=== PATIENT | female | born 1980 | race Caucasian/White ===

== ENCOUNTER → 2019-03-13 | Day surgery (SDC) | payer OTHER ==
[~2019-03-13] MED LIST: DEPAKOTE ER500 MG PO; FENTANYL CITRATE/PF 100MCG/2 ML INJ ONE; HYOSCYAMINE 0.125 MG TAB ONE; KEPPRA750 MG PO; MIDAZOLAM HCL 2 MG/2 ML VIAL ONE; PANTOPRAZOLE 40 MG 10ML VIAL ONE; PROPOFOL IV EMULSION 10 MG/ML 50 ML VIAL ONE; SIMETHICONE 40 MG/0.6 ML BTL ONE
--- OUTSIDE RECORDS SUMMARY | 2019-03-13 09:53 | XMS REPORT ---
Author 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 Allergies, Adverse Reactions, Alerts Allergy Name Allergy Type Status Severity Reaction(s) Onset Date Inactive Date Treating Clinician Comments epinephrine DA Active U 2019-03-06 00:00:00 articaine DA Active U 2019-03-06 00:00:00 No Known Allergies DA Active U 2019-03-04 00:00:00 No Known Allergies DA Active U 2011-05-22 00:00:00 Medications This patient has no known medications. Results Test Description Test Time Test Comments Text Results Atomic Results Result Comments LEVETIRACETAM 2019-03-07 20:06:00 LEVETIRACETAM (test code=LEVTAM) 45.1 ug/mL 10.0-40.0 This test was developed and its performance characteristicsdetermined by [facility]. It has not been cleared orapproved by the Food and Drug Administration.Performed At: [address] [id number] Weaver MD Ph:[phone] - XR CHEST 1 [id number] 08:09:00 Name: OMAR WILLIAMSON [facility] : 1980 Age/S:38 /F [address] [facility] Unit#:[id number] Loc: [place] [address] Phys: Ryan Rodriguez MD Dis Date: PHONE #: [phone] Status: REG ER FAX #: [phone] Exam Date: 03/06/2019 Reason: CHEST PAIN EXAMS: CPT CODE: [id number] XR CHEST 1 V 88564 TECHNIQUE: AP chest x-ray COMPARISON: 03/04/19 FINDINGS: No airspace consolidation or pleural effusion. Normal heart size. Mediastinal silhouette is unremarkable. Visualized osseous structures are grossly intact. IMPRESSION: No radiographic evidence of acute cardiopulmonary process. at 0809 Reported and signed by: Sarah Chen D.O. CC: Ryan Rodriguez MD; Giovanny Woodward DO Technologist: BLANKA RAMIREZ RT(R),CT Trnscrpt Data: 03/06/2019 (0809) Amilcar.[email or web address] Orig Print D/T: S: 03/06/2019 (8914) PAGE 1 Signed Report BASIC METABOLIC [id number] 08:00:00* Test Item Value Reference Range Comments SODIUM (test code=NA) 141 mmol/L 136-145 POTASSIUM (test code=K) 3.6 mmol/L 3.5-5.1 CHLORIDE (test code=CL) 104 mmol/L 101-109 CARBON DIOXIDE (test code=CO2) 29.1 mmol/L 21-32 ANION GAP (test code=GAP) 12 mmol/L 10-20 GLUCOSE (test code=GLU) 87 mg/dL 74-106 BLOOD UREA NITROGEN (test code=BUN) 8 mg/dL 3-21 GLOMERULAR FILTRATION RATE (test code=GFR) > 60 mL/min >=60 Estimated GFR by using Modified MDRD formula.Chronic kidney disease is defined as either kidney damageor GFR <60 mL/min/1.73 m2 for >3 months. CREATININE (test code=CREAT) 0.69 mg/dL 0.55-1.3 BUN/CREATININE RATIO (test code=BUN/CREA) 11.6 10-20 CALCIUM (test code=CA) 8.2 mg/dL 8.4-10.2 HEPATIC FUNCTION [id number] 08:00:00* Test Item Value Reference Range Comments TOTAL PROTEIN (test code=PROT) 6.8 g/dL 6.5-8.4 ALBUMIN (test code=ALB) 3.4 g/dL 3.4-4.8 GLOBULIN (test code=GLOB) 3.4 G/DL 1-10 ALBUMIN/GLOBULIN RATIO (test code=A/G) 1.00 RATIO 0.75-1.50 BILIRUBIN TOTAL (test code=BILT) 0.20 mg/dL 0.0-1.0 BILIRUBIN DIRECT (test code=BILD) 0.10 mg/dL 0.0-0.30 SGOT/AST (test code=AST) 25 U/L 6-32 SGPT/ALT (test code=ALT) 26 U/L 12-78 Note: Change in REFERENCE RANGE due to new reagent method. ALKALINE PHOSPHATASE TOTAL (test code=ALKP) 63 U/L 38-126 [id number] 08:00:00* Test Item Value Reference Range Comments LIPASE (test code=LIP) 102 U/L 128-270 HCG SERUM [id number] 08:00:00* Test Item Value Reference Range Comments HCG SERUM QUAL (test code=HCGQL) NEGATIVE NEGATIVE This HCGQL test is NOT applicable for MALE patients.Check with nurse about probable order error.If Tumor Marker Test needed, nurse should order test "HCGTU"(Test #550.33789) [id number] 08:00:00* Test Item Value Reference Range Comments TROPONIN-I (test code=TROPI) <0.015 ng/mL 0.00-0.056 BASIC METABOLIC [id number] 07:56:00* Test Item Value Reference Range Comments SODIUM (test code=NA) 141 mmol/L 136-145 POTASSIUM (test code=K) 3.6 mmol/L 3.5-5.1 CHLORIDE (test code=CL) 104 mmol/L 101-109 CARBON DIOXIDE (test code=CO2) 29.1 mmol/L 21-32 ANION GAP (test code=GAP) 12 mmol/L 10-20 GLUCOSE (test code=GLU) 87 mg/dL 74-106 BLOOD UREA NITROGEN (test code=BUN) 8 mg/dL 3-21 GLOMERULAR FILTRATION RATE (test code=GFR) > 60 mL/min >=60 Estimated GFR by using Modified MDRD formula.Chronic kidney disease is defined as either kidney damageor GFR <60 mL/min/1.73 m2 for >3 months. CREATININE (test code=CREAT) 0.69 mg/dL 0.55-1.3 BUN/CREATININE RATIO (test code=BUN/CREA) 11.6 10-20 CALCIUM (test code=CA) 8.2 mg/dL 8.4-10.2 HEPATIC FUNCTION [id number] 07:56:00* Test Item Value Reference Range Comments TOTAL PROTEIN (test code=PROT) gram/dL 6.4-8.2 ALBUMIN (test code=ALB) g/dL 3.4-5.0 GLOBULIN (test code=GLOB) g/dL 2.7-4.2 ALBUMIN/GLOBULIN RATIO (test code=A/G) 0.75-1.50 BILIRUBIN TOTAL (test code=BILT) mg/dL 0.2-1.2 BILIRUBIN DIRECT (test code=BILD) mg/dL 0.0-0.20 SGOT/AST (test code=AST) IUnit/L 15-37 SGPT/ALT (test code=ALT) U/L 10-69 ALKALINE PHOSPHATASE TOTAL (test code=ALKP) IUnit/L 45-117 [id number] 07:56:00* Test Item Value Reference Range Comments LIPASE (test code=LIP) Unit/L 144-286 HCG SERUM [id number] 07:56:00* Test Item Value Reference Range Comments HCG SERUM QUAL (test code=HCGQL) NEGATIVE NEGATIVE This HCGQL test is NOT applicable for MALE patients.Check with nurse about probable order error.If Tumor Marker Test needed, nurse should order test "HCGTU"(Test #550.54788) [id number] 07:56:00* Test Item Value Reference Range Comments TROPONIN-I (test code=TROPI) ng/mL 0-0.045 BASIC METABOLIC [id number] 07:51:00* Test Item Value Reference Range Comments SODIUM (test code=NA) 141 mmol/L 136-145 POTASSIUM (test code=K) 3.6 mmol/L 3.5-5.1 CHLORIDE (test code=CL) 104 mmol/L 101-109 CARBON DIOXIDE (test code=CO2) 29.1 mmol/L 21-32 ANION GAP (test code=GAP) 12 mmol/L 10-20 GLUCOSE (test code=GLU) 87 mg/dL 74-106 BLOOD UREA NITROGEN (test code=BUN) 8 mg/dL 3-21 GLOMERULAR FILTRATION RATE (test code=GFR) > 60 mL/min >=60 Estimated GFR by using Modified MDRD formula.Chronic kidney disease is defined as either kidney damageor GFR <60 mL/min/1.73 m2 for >3 months. CREATININE (test code=CREAT) 0.69 mg/dL 0.55-1.3 BUN/CREATININE RATIO (test code=BUN/CREA) 11.6 10-20 CALCIUM (test code=CA) 8.2 mg/dL 8.4-10.2 HEPATIC FUNCTION [id number] 07:51:00* Test Item Value Reference Range Comments TOTAL PROTEIN (test code=PROT) gram/dL 6.4-8.2 ALBUMIN (test code=ALB) g/dL 3.4-5.0 GLOBULIN (test code=GLOB) g/dL 2.7-4.2 ALBUMIN/GLOBULIN RATIO (test code=A/G) 0.75-1.50 BILIRUBIN TOTAL (test code=BILT) mg/dL 0.2-1.2 BILIRUBIN DIRECT (test code=BILD) mg/dL 0.0-0.20 SGOT/AST (test code=AST) IUnit/L 15-37 SGPT/ALT (test code=ALT) U/L 10-69 ALKALINE PHOSPHATASE TOTAL (test code=ALKP) IUnit/L 45-117 [id number] 07:51:00* Test Item Value Reference Range Comments LIPASE (test code=LIP) Unit/L 144-286 HCG SERUM [id number] 07:51:00* Test Item Value Reference Range Comments HCG SERUM QUAL (test code=HCGQL) NEGATIVE [id number] 07:51:00* Test Item Value Reference Range Comments TROPONIN-I (test code=TROPI) ng/mL 0-0.045 URINALYSIS [id number] 07:49:00* Test Item Value Reference Range Comments UA COLOR (test code=COLU) YELLOW YELLOW UA APPEARANCE (test code=APPU) HAZY CLEAR UA GLUCOSE DIPSTICK (test code=DGLUU) norm mg/dL NEGATIVE UA BILIRUBIN DIPSTICK (test code=BILU) NEGATIVE mg/dL NEGATIVE UA KETONE DIPSTICK (test code=KETU) 5 (Trace) mg/dL NEGATIVE UA SPECIFIC GRAVITY (test code=SGU) 1.025 1.001-1.035 UA BLOOD DIPSTICK (test code=ELIANE) 10 (Trace) Freddy/uL NEGATIVE UA PH DIPSTICK (test code=NALDO) 5.0 5.0-8.0 UA PROTEIN DIPSTICK (test code=PROU) 30 (1+) mg/dL Neg-15 UA UROBILINIOGEN DIPSTICK (test code=URO) norm mg/dL 0.0-0.2 UA NITRITE DIPSTICK (test code=LAMAR) NEGATIVE NEGATIVE UA LEUKOCYTE ESTERASE DIPSTICK (test code=LEUU) 25 Renetta/uL (Trace) uL NEGATIVE UA WBC (test code=WBCU) 6-10 per HPF 0-5 UA RBC (test code=RBCU) 0-3 per HPF 0-5 UA EPITHELIAL CELLS (test code=EPIU) MANY per HPF Few UA BACTERIA (test code=BACU) MODERATE per HPF NONE Urine Source? Clean CatchURINALYSIS [id number] 07:41:00* Test Item Value Reference Range Comments UA COLOR (test code=COLU) YELLOW YELLOW UA APPEARANCE (test code=APPU) HAZY CLEAR UA GLUCOSE DIPSTICK (test code=DGLUU) norm mg/dL NEGATIVE UA BILIRUBIN DIPSTICK (test code=BILU) NEGATIVE mg/dL NEGATIVE UA KETONE DIPSTICK (test code=KETU) 5 (Trace) mg/dL NEGATIVE UA SPECIFIC GRAVITY (test code=SGU) 1.025 1.001-1.035 UA BLOOD DIPSTICK (test code=ELIANE) 10 (Trace) Freddy/uL NEGATIVE UA PH DIPSTICK (test code=NALDO) 5.0 5.0-8.0 UA PROTEIN DIPSTICK (test code=PROU) 30 (1+) mg/dL Neg-15 UA UROBILINIOGEN DIPSTICK (test code=URO) norm mg/dL 0.0-0.2 UA NITRITE DIPSTICK (test code=LAMAR) NEGATIVE NEGATIVE UA LEUKOCYTE ESTERASE DIPSTICK (test code=LEUU) 25 Renetta/uL (Trace) uL NEGATIVE UA WBC (test code=WBCU) per HPF 0-5 UA RBC (test code=RBCU) per HPF 0-5 UA EPITHELIAL CELLS (test code=EPIU) per HPF Few UA BACTERIA (test code=BACU) per HPF NONE Urine Source? Clean CatchCBC W/O [id number] 07:40:00* Test Item Value Reference Range Comments WHITE BLOOD CELL (test code=WBC) 4.6 K/mm3 4.5-12.5 RED BLOOD CELL (test code=RBC) 4.32 mill/mm3 3.7-5.2 HEMOGLOBIN (test code=HGB) 12.5 gram/dL 11.5-15.5 HEMATOCRIT (test code=HCT) 37.4 % 36.0-46.0 MEAN CELL VOLUME (test code=MCV) 86.6 fL 80-98 MEAN CELL HGB (test code=MCH) 28.9 picogram 27.0-33.0 MEAN CELL HGB CONCETRATION (test code=MCHC) 33.4 gram/dL 33.0-36.0 RED CELL DISTRIBUTION WIDTH (test code=RDW) 12.9 % 11.6-16.2 RED CELL DISTRIBUTION WIDTH SD (test code=RDW-SD) 41.4 fL 37.0-51.0 PLATELET COUNT (test code=PLT) 171 K/mm3 150-450 MEAN PLATELET VOLUME (test code=MPV) 11.2 fL 6.7-11.0 VALPROIC ACID (DEPAKENE)2019-03-04 22:22:00* Test Item Value Reference Range Comments VALPROIC ACID (DEPAKENE) (test code=VALP) 25.0 mcg/mL 50.0-100.0 - CT ABD PELVIS [id number] 20:41:00 Name: OMAR WILLIAMSON [facility] : 1980 Age/S: 38 / F [address] [facility] Unit #: [id number] Loc: [place] [address] Phys: Juan Montes De Oca MD Acct: [id number] Dis Date: Status: REG ER PHONE #: [phone] Exam Date: 03/04/20192039 FAX #: [phone] Reason: abd pain, diarrhea, fever EXAMS: CPT CODE: [id number] CT ABD PELVIS W/CONT [id number] REASON FOR EXAM: abd pain, diarrhea, fever EXAM ORDER DATE: 03/04/2019 7:40 PM Ordering Genia: Juan Montes De Oca MD PROCEDURE: - CT ABD PELVIS W/CONT COMPARISON: FINDINGS: CT images of the abdomen and pelvis were obtained with IV and without oral contrast at 5mm. Dose modulation, iterative reconstruction, and/or weight based adjustment of the MA/KV was utilized to reduce the radiation dose to as low as reasonably achievable. Intravenous contrast: 100cc of Omnipaque 370. The liver, spleen, pancreas are grossly within normal limits. The gallbladder is contracted The kidneys are within normal limits. The urinary bladder is unremarkable. The colon, small bowel, and stomach are within normal limits without evidence of obstruction. The appendix is not seen No evidence of free air or free fluid. The patient is status post hysterectomy IMPRESSION: No acute findings in the abdomen at 204 Reported and signed by: Grant Saunders M.D. CC: Juan Montes De Oca MD chnologist:FAUSTO FONTANEZ RT(R),RDMS,CT CTDI: DLP: Trnscb Date/ Time: 03/04/2019 (2040) t.VTL Orig Print D/T: S: 02/21 (2043) PAGE 1 Signed Report - XR CHEST 1 [id number] 20:41:00 Name: OMAR WILLIAMSON [facility] : 1980 Age/S:38 /F [address] [facility] Unit#:[id number] Loc: [place] [address] Phys: Juan Montes De Oca MD Dis Date: PHONE #: [phone] Status: REG ER FAX #: [phone] Exam Date: 03/04/2019 Reason: cp EXAMS: CPT CODE: [id number] XR CHEST 1 V 34444 REASON FOR EXAM: cp EXAM ORDER DATE: 03/04/2019 7:29 PM Ordering M.Kim: Juan Montes De Oca MD PROCEDURE: - XR CHEST 1 V COMPARISON: FINDINGS: Portable AP frontal view of the chest obtained at 8:21 PM shows clear lungs without evidence of consolidation. There is no evidence of effusion. The heart size is within normal limits. Pulmonary vasculatures are unremarkable. IMPRESSION: No active disease. at 2040 Reported and signed by: Grant Saunders M.D. CC: Juan Valerio MD Technologist: FAUSTO FONTANEZ RT(R),RDMS,CT Trnscrpt Data: 03/04/2019 (2040) t.VIKRAM R.VTL Orig Print D/T: S: 03/04/2019 (2043) PAGE 1 Signed Report [id number] 20:17:00* Test Item Value Reference Range Comments MAGNESIUM (test code=MAG) 1.7 mg/dL 1.6-2.3 ADD ONCPK-MB [id number] 20:00:00* Test Item Value Reference Range Comments CREATINE KINASE (CK) (test code=CK) 61 U/L 26-192 CKMB (test code=CKMBT) <0.5 ng/mL 0.0-5.0 RELATIVE % INDEX (test code=REL%) 0.8 % ADD [id number] 20:00:00* Test Item Value Reference Range Comments TROPONIN-I (test code=TROPI) <0.015 ng/mL 0.00-0.056 ADD ONCOMPREHENSIVE METABOLIC [id number] 19:30:00* Test Item Value Reference Range Comments SODIUM (test code=NA) 140 mmol/L 135-148 POTASSIUM (test code=K) 3.7 mmol/L 3.5-5.1 CHLORIDE (test code=CL) 103 mmol/L 101-109 CARBON DIOXIDE (test code=CO2) 27.1 mmol/L 21-32 ANION GAP (test code=GAP) 14 mmol/L 10-20 GLUCOSE (test code=GLU) 92 mg/dL 74-106 BLOOD UREA NITROGEN (test code=BUN) 16 mg/dL 3-21 CREATININE (test code=CREAT) 0.75 mg/dL 0.55-1.3 BUN/CREATININE RATIO (test code=BUN/CREA) 21.3 10-20 TOTAL PROTEIN (test code=PROT) 8.4 g/dL 6.5-8.4 ALBUMIN (test code=ALB) 4.4 g/dL 3.4-4.8 GLOBULIN (test code=GLOB) 4.0 G/DL 1-10 ALBUMIN/GLOBULIN RATIO (test code=A/G) 1.1 RATIO 0.75-1.50 CALCIUM (test code=CA) 9.2 mg/dL 8.4-10.2 BILIRUBIN TOTAL (test code=BILT) 0.40 mg/dL 0.0-1.0 SGOT/AST (test code=AST) 23 U/L 6-32 SGPT/ALT (test code=ALT) 22 U/L 12-78 Note: Change in REFERENCE RANGE due to new reagent method. ALKALINE PHOSPHATASE TOTAL (test code=ALKP) 80 U/L 38-126 [id number] 19:30:00* Test Item Value Reference Range Comments LIPASE (test code=LIP) 143 U/L 128-270 URINALYSIS [id number] 19:20:00* Test Item Value Reference Range Comments UA COLOR (test code=COLU) YELLOW YELLOW UA APPEARANCE (test code=APPU) Cloudy CLEAR UA GLUCOSE DIPSTICK (test code=DGLUU) norm mg/dL NEGATIVE UA BILIRUBIN DIPSTICK (test code=BILU) 1 mg/dL NEGATIVE UA KETONE DIPSTICK (test code=KETU) 5 (Trace) mg/dL NEGATIVE UA SPECIFIC GRAVITY (test code=SGU) 1.020 1.001-1.035 UA BLOOD DIPSTICK (test code=ELIANE) 25 (1+) Freddy/uL NEGATIVE UA PH DIPSTICK (test code=NALDO) 5.0 5.0-8.0 UA PROTEIN DIPSTICK (test code=PROU) 30 (1+) mg/dL Neg-15 UA UROBILINIOGEN DIPSTICK (test code=URO) 1 mg/dL 0.0-0.2 UA NITRITE DIPSTICK (test code=LAMAR) POSITIVE NEGATIVE UA LEUKOCYTE ESTERASE DIPSTICK (test code=LEUU) 25 Renteta/uL (Trace) uL NEGATIVE UA WBC (test code=WBCU) 0-5 per HPF 0-5 UA RBC (test code=RBCU) 0-2 per HPF 0-5 UA EPITHELIAL CELLS (test code=EPIU) Few (2-5/hpf) per HPF Few UA BACTERIA (test code=BACU) TRACE per HPF NONE UA AMORPHOUS SEDIMENT (test code=AMORU) MANY per LPF NONE URINALYSIS W/O [id number] 19:20:00* Test Item Value Reference Range Comments UA LEUKOCYTE ESTERASE W REFLEX (test code=LEUUR) 25 Renetta/uL (Trace) NEGATIVE UR HCG [id number] 19:20:00* Test Item Value Reference Range Comments UR HCG QUAL (test code=HCGQLU) NEGATIVE This HCGQL test is NOT applicable for MALE patients.Check with nurse about probable order error.If Tumor Marker Test needed, nurse should order test "HCGTU"(Test #550.86814) COMPREHENSIVE METABOLIC [id number] 19:20:00* Test Item Value Reference Range Comments SODIUM (test code=NA) 140 mmol/L 135-148 POTASSIUM (test code=K) 3.7 mmol/L 3.5-5.1 CHLORIDE (test code=CL) 103 mmol/L 101-109 CARBON DIOXIDE (test code=CO2) 27.1 mmol/L 21-32 ANION GAP (test code=GAP) 14 mmol/L 10-20 GLUCOSE (test code=GLU) 92 mg/dL 74-106 BLOOD UREA NITROGEN (test code=BUN) 16 mg/dL 3-21 CREATININE (test code=CREAT) 0.75 mg/dL 0.55-1.3 BUN/CREATININE RATIO (test code=BUN/CREA) 21.3 10-20 TOTAL PROTEIN (test code=PROT) gram/dL 6.4-8.2 ALBUMIN (test code=ALB) g/dL 3.4-5.0 GLOBULIN (test code=GLOB) g/dL 2.7-4.2 ALBUMIN/GLOBULIN RATIO (test code=A/G) 0.75-1.50 CALCIUM (test code=CA) 9.2 mg/dL 8.4-10.2 BILIRUBIN TOTAL (test code=BILT) mg/dL 0.2-1.2 SGOT/AST (test code=AST) IUnit/L 15-37 SGPT/ALT (test code=ALT) U/L 10-69 ALKALINE PHOSPHATASE TOTAL (test code=ALKP) IUnit/L 45-117 [id number] 19:20:00* Test Item Value Reference Range Comments LIPASE (test code=LIP) Unit/L 144-286 URINALYSIS [id number] 19:17:00* Test Item Value Reference Range Comments UA COLOR (test code=COLU) YELLOW YELLOW UA APPEARANCE (test code=APPU) Cloudy CLEAR UA GLUCOSE DIPSTICK (test code=DGLUU) norm mg/dL NEGATIVE UA BILIRUBIN DIPSTICK (test code=BILU) 1 mg/dL NEGATIVE UA KETONE DIPSTICK (test code=KETU) 5 (Trace) mg/dL NEGATIVE UA SPECIFIC GRAVITY (test code=SGU) 1.020 1.001-1.035 UA BLOOD DIPSTICK (test code=ELIANE) 25 (1+) Freddy/uL NEGATIVE UA PH DIPSTICK (test code=NALDO) 5.0 5.0-8.0 UA PROTEIN DIPSTICK (test code=PROU) 30 (1+) mg/dL Neg-15 UA UROBILINIOGEN DIPSTICK (test code=URO) 1 mg/dL 0.0-0.2 UA NITRITE DIPSTICK (test code=LAMAR) POSITIVE NEGATIVE UA LEUKOCYTE ESTERASE DIPSTICK (test code=LEUU) uL NEGATIVE UA WBC (test code=WBCU) per HPF 0-5 UA RBC (test code=RBCU) per HPF 0-5 UA EPITHELIAL CELLS (test code=EPIU) per HPF Few UA BACTERIA (test code=BACU) per HPF NONE URINALYSIS W/O [id number] 19:17:00* Test Item Value Reference Range Comments UA LEUKOCYTE ESTERASE W REFLEX (test code=LEUUR) NEGATIVE UR HCG [id number] 19:17:00* Test Item Value Reference Range Comments UR HCG QUAL (test code=HCGQLU) URINALYSIS [id number] 19:17:00* Test Item Value Reference Range Comments UA COLOR (test code=COLU) YELLOW YELLOW UA APPEARANCE (test code=APPU) Cloudy CLEAR UA GLUCOSE DIPSTICK (test code=DGLUU) norm mg/dL NEGATIVE UA BILIRUBIN DIPSTICK (test code=BILU) 1 mg/dL NEGATIVE UA KETONE DIPSTICK (test code=KETU) 5 (Trace) mg/dL NEGATIVE UA SPECIFIC GRAVITY (test code=SGU) 1.020 1.001-1.035 UA BLOOD DIPSTICK (test code=ELIANE) 25 (1+) Freddy/uL NEGATIVE UA PH DIPSTICK (test code=NALDO) 5.0 5.0-8.0 UA PROTEIN DIPSTICK (test code=PROU) 30 (1+) mg/dL Neg-15 UA UROBILINIOGEN DIPSTICK (test code=URO) 1 mg/dL 0.0-0.2 UA NITRITE DIPSTICK (test code=LAMAR) POSITIVE NEGATIVE UA LEUKOCYTE ESTERASE DIPSTICK (test code=LEUU) uL NEGATIVE UA WBC (test code=WBCU) per HPF 0-5 UA RBC (test code=RBCU) per HPF 0-5 UA EPITHELIAL CELLS (test code=EPIU) per HPF Few UA BACTERIA (test code=BACU) per HPF NONE URINALYSIS W/O [id number] 19:17:00* Test Item Value Reference Range Comments UA LEUKOCYTE ESTERASE W REFLEX (test code=LEUUR) NEGATIVE UR HCG [id number] 19:17:00* Test Item Value Reference Range Comments UR HCG QUAL (test code=HCGQLU) CBC W/AUTO [id number] 19:13:00* Test Item Value Reference Range Comments WHITE BLOOD CELL (test code=WBC) 8.3 K/mm3 4.5-12.5 RED BLOOD CELL (test code=RBC) 5.07 mill/mm3 3.7-5.2 HEMOGLOBIN (test code=HGB) 14.8 gram/dL 11.5-15.5 HEMATOCRIT (test code=HCT) 44.4 % 36.0-46.0 MEAN CELL VOLUME (test code=MCV) 87.6 fL 80-98 MEAN CELL HGB (test code=MCH) 29.2 picogram 27.0-33.0 MEAN CELL HGB CONCETRATION (test code=MCHC) 33.3 gram/dL 33.0-36.0 RED CELL DISTRIBUTION WIDTH (test code=RDW) 12.9 % 11.6-16.2 RED CELL DISTRIBUTION WIDTH SD (test code=RDW-SD) 41.8 fL 37.0-51.0 PLATELET COUNT (test code=PLT) 219 K/mm3 150-450 MEAN PLATELET VOLUME (test code=MPV) 11.0 fL 6.7-11.0 NEUTROPHIL % (test code=NT%) 80.1 % 39.0-69.0 LYMPHOCYTE % (test code=LY%) 10.5 % 25.0-55.0 MONOCYTE % (test code=MO%) 8.1 % 0.0-10.0 EOSINOPHIL % (test code=EO%) 1.1 % 0.0-5.0 BASOPHIL % (test code=BA%) 0.1 % 0.0-1.0 NEUTROPHIL # (test code=NT#) 6.60 K/mm3 1.8-7.7 LYMPHOCYTE # (test code=LY#) 0.87 K/mm3 1.0-5.0 MONOCYTE # (test code=MO#) 0.67 K/mm3 0-0.8 EOSINOPHIL # (test code=EO#) 0.09 K/mm3 0.0-0.5 BASOPHIL # (test code=BA#) 0.01 K/mm3 0.0-0.2 MANUAL DIFF REQUIRED (test code=MDIFF) NO
--- OUTSIDE RECORDS SUMMARY | 2019-03-13 09:53 | XMS REPORT | Summary of Care ---
Author Author MUNDO RIVERO M.D. Unknown Address [place] [facility] Phone Unavailable Care Team Providers Care Milk Handler Name Role Phone MAT Cormier, MUNDO Unavailable Unavailable DORIE Chappell.Trudi, DENI Unavailable Unavailable MARCELL TUCKER [place], SHYAM Unavailable Unavailable GIBSON MCRAE [place], STACY MORALES Unavailable Unavailable RICHY MCRAE, DAR Unavailable Unavailable DORIE ANGELOP, DENI Unavailable Unavailable MUNDO RIVERO MD Unavailable Unavailable MARCELL D.O., SHYAM Unavailable Unavailable Unavailable Unavailable Functional Status Name Dates Details Functional status health issues are not documented Status: Name Dates Details Cognitive status health issues are not documented Status: Problems Name Dates Details Obesity (278.00, E66.9) Status: Active Acute URI (465.9, J06.9) Status: Active Acute bacterial sinusitis (461.9, J01.90) Status: Active History of ingrown nail (V13.3, Z87.2) Status: Active Seizure disorder (345.90, G40.909) Status: Active Nausea and vomiting in adult (787.01, R11.2) Status: Active Acute diarrhea (787.91, R19.7) Status: Active Acute otitis media, unspecified otitis media type (382.9, H66.90) Status: Active Abnormal bruising (782.9, R23.8) Status: Active History of Cleft palate repair Status: Resolved Otorrhea of left ear (388.60, H92.12) Status: Active Medications Name Dates Details Keppra 750 MG Oral Tablet TAKE 1 TABLET TWICE DAILY. * Start : 06-Sep-2017 Active Depakote 500 MG Oral Tablet Delayed Release TAKE 1 TABLET DAILY DIRECTED. * Refills: 0 * Start : 06-Sep-2017 Active Ondansetron HCl - 4 MG Oral Tablet take 1 tab three times a day as needed for nausea * Quantity: 12 Refills: 0 DORIE N.P., DENI * Start : 14-Jan-2019 Active Ciprodex 0.3-0.1 % Otic Suspension 4 drops to the left ear BID * Quantity: 1 Refills: 1 MUNDO RIVERO M.D. * Start : 21-Feb-2019 Active 7.5 ML Bottle Allergies and Adverse Reactions Name Dates Details codeine (Allergy) Status: Active Morphine Derivatives (Allergy) Status: Active Past Medical History Name Dates Details History of hearing problem (V12.49, Z86.69) Status: Resolved History of seizures (V12.49, Z87.898) Status: Resolved Procedures Procedure Dates Details [QL[facility]] FECAL LEUKOCYTE STAIN Date: 14-Jan-2019 [[facility]] CLOSTRIDIUM DIFFICILE TOXIN A AND B, EIA Date: 14-Jan-2019 [[facility]] CULTURE, STOOL (CAMPYLOBACTER, SALMONELLA/SHIGELLA) Date: 14-Jan-2019 [Q] OVA AND PARASITES, STOOL CONC/PERM SMEAR, 2 SPEC Date: 14-Jan-2019 [QL] TSH, 3RD GENERATION W/REFLEX TO FT4 Date: 02-Feb-2019 [QL] CBC (INCLUDES DIFF/PLT) Date: 02-Feb-2019 [[facility]] CMP W/EGFR Date: 02-Feb-2019 [QL] PARTIAL THROMBOPLASTIN TIME, ACTIVATED Date: 02-Feb-2019 [QL] PROTHROMBIN TIME-INR Date: 02-Feb-2019 History of Appendectomy Completed History of Hysterectomy Completed History of Tubal ligation Completed History of Ovarian cystectomy Completed History of Cleft palate repair Completed Immunization Name Dates Details Influenza on: 05-Aug-2017 Family History Name Dates Details Family history of malignant neoplasm of breast (V16.3, Z80.3) Status: Active Name Dates Details Family history of hypotension (V17.49, Z82.49) Status: Active Family history of vertigo (V19.3, Z83.52) Status: Active Name Dates Details Family history of diabetes mellitus (V18.0, Z83.3) Status: Active Family history of High cholesterol (272.0, E78.00) Status: Active Family history of hypertension (V17.49, Z82.49) Status: Active Family history of cerebrovascular accident (CVA) (V17.1, Z82.3) Status: Active Family history of asthma (V17.5, Z82.5) Status: Active Social History Name Dates Details - Status: Name Dates Details Current every day smoker Vital Signs Date Test Result Details [id number] BP Systolic 117 mm[Hg] Status: Comments: Location: LUE; Position: Sitting BP Diastolic 77 mm[Hg] Status: Comments: Location: LUE; Position: Sitting Height 64 in Status: Weight 169.3125 lb Status: Body Mass Index Calculated 29.06 kg/m2 Status: Body Surface Area Calculated 1.82 m2 Status: Heart Rate 76 /min Status: Respiration Rate 16 /min Status: [id number] BP Systolic 120 mm[Hg] Status: Comments: Location: LUE; Position: Sitting BP Diastolic 76 mm[Hg] Status: Comments: Location: LUE; Position: Sitting Height 64 in Status: Weight 171.25 lb Status: Body Mass Index Calculated 29.4 kg/m2 Status: Body Surface Area Calculated 1.83 m2 Status: Heart Rate 72 /min Status: Respiration Rate 16 /min Status: Results Date Description Value Details Results not documented Plan of Care Name Dates Details Planned Observations Planned Goals not documented Planned Encounters Appointment; MUNDO RIVERO M.D. On: 05-Sep-2019 15:00 Interventions Provided Plan* 1. Mastoid is clean today . FU i n 6 months. Instructions Name Dates Details Instructions not documented Encounters Appointment; SHYAM FAITH D.O. Encounter Diagnosis: Problem not documented On: 06-Sep-2017 10:15 Appointment; BRITTNEY WILLIAMSON RD Encounter Diagnosis: Problem not documented On: 10-Oct-2017 13:00 Appointment; EMILIANA PATEL M.D. Encounter Diagnosis: Problem not documented On: 12-Apr-2018 10:30 Appointment; JOSEPHINE BURNETTE NP Encounter Diagnosis: Problem not documented On: 27-Jun-2018 8:30 Appointment; JOSEPHINE BURNETTE NP Encounter Diagnosis: Problem not documented On: 01-Oct-2018 13:00 Appointment; DAR LOCKHART M.D. Encounter Diagnosis: Problem not documented On: 14-Jan-2019 11:30 Appointment; DNEI OSHEA NP Encounter Diagnosis: Problem not documented On: 02-Feb-2019 11:00 Appointment; MUNDO RIVERO M.D. Encounter Diagnosis: Problem not documented On: 21-Feb-2019 14:45 Appointment; MUNDO RIVERO M.D. Encounter Diagnosis: Problem not documented On: 28-Feb-2019 15:00
[2019-03-13 14:30] VITALS: BP 109/78
--- NOTE | 2019-03-13 15:00 | Operative Report ---
DATE OF PROCEDURE: 03/13/2019 SURGEON: Scott Perez MD PROCEDURE: Esophagogastroduodenoscopy with biopsies and a colonoscopy with biopsies. INDICATIONS FOR EGD: Upper abdominal pain, nausea and vomiting. INDICATIONS FOR COLONOSCOPY: Lower abdominal pain, diarrhea, history of bright red blood per rectum. MEDICATIONS: The patient was done under MAC, please see anesthesiologist's note. PROCEDURE IN DETAIL: With the patient in left lateral decubitus position, flexible fiberoptic Olympus gastroscope was introduced into the esophagus under direct visualization without any difficulty. There was some patchy erythema noted in distal esophagus. The scope was then advanced with ease into the stomach and the mucosa overlying the antrum and the body revealed some patchy erythema and [id number]-[id number] edema and biopsies were obtained and sent to stain for H pylori. An approximately 5 mm ulcer was noted in the mid antrum along the greater curvature without active bleeding or stigmata of recent hemorrhage that was biopsied. The pylorus was intubated with ease and the scope was advanced all the way to the second portion of the duodenum. Biopsies were obtained from the proximal second portion and duodenal bulb to rule out sprue. The scope was then withdrawn back into the stomach and retroflexed. Mucosa overlying the fundus and cardia appeared to be within normal limits. The scope was then straightened out, it was subsequently withdrawn. The patient tolerated the procedure well. IMPRESSION: 1. Distal esophagitis. 2. Gastritis, biopsied. Biopsies sent to stain for Helicobacter pylori. 3. Gastric ulcer, antrum approximately 5 mm in size without active bleeding or stigmata of recent hemorrhage. It was biopsied. 4. Rule out sprue. PLAN: Follow up histology. Initiate Protonix 40 mg one p.o. q.a.m. a.c. and Carafate 1 g p.o. a.c. t.i.d. and at bedtime. PROCEDURE IN DETAIL: The patient was then turned around and after adequate lubrication of the anal canal a flexible fiberoptic Olympus colonoscope was inserted into the rectum with ease and advanced all the way to the cecum. Mucosa overlying the cecum appeared to be within normal limits. The ileocecal valve was intubated and the scope was advanced into the terminal ileum. Biopsies were obtained. The scope was then withdrawn back into the colon. It was then withdrawn slowly. Mucosa overlying the ascending and the transverse appeared to be within normal limits. There were some mild patchy inflammatory changes noted in the left colon and the rectum. Multiple random biopsies were obtained. The scope was then retroflexed into the distal rectum. Small internal hemorrhoids were noted, none of which was actively bleeding. The scope was then straightened out, it was subsequently withdrawn. The patient tolerated the procedure well. IMPRESSION: 1. Mild patchy left-sided colitis. 2. Proctitis, mild. 3. Internal hemorrhoids, none actively bleeding. PLAN: Followup histology. Followup stool studies. Initiate Bentyl 20 mg one p.o. t.i.d. and Visbiome one p.o. b.i.d. MD CHERY Paul/MARGUERITE /[id number] cc: Giovanny Woodward DO
[2019-03-13 15:28] LABS: C DIFFICILE TOXIN A&B AMP PROB NEGATIVE (NEGATIVE); WBC,FECAL (FECAL LACTOFERRIN) POSITIVE (NEGATIVE)
== END | disposition home or self-care (01) ==
LOC: OR 09:52
PROVIDERS: ATTEND Internal Medicine Gastroenterology
DX: K29.80 Duodenitis without bleeding (principal); R10.13 Epigastric pain; R11.0 Nausea; R19.5 Other fecal abnormalities; G40.909 Epilepsy, unspecified, not intractable, without status epilepticus; K20.9 Esophagitis, unspecified; K29.70 Gastritis, unspecified, without bleeding; K25.9 Gastric ulcer, unspecified as acute or chronic, without hemorrhage or perforation; K51.50 Left sided colitis without complications; K64.8 Other hemorrhoids
CPT/HCPCS: 43239; 45380; 83630; 83993; 87045; 87177; 87328; 87493; C9113; J2250; J2704; J3010; 45378

== ENCOUNTER 2019-03-14 12:19 | Observation (INO) | payer OTHER ==
[~2019-03-14] VITALS: Ht 162.6 cm; Wt 75.8 kg
[~2019-03-14 12:19] MED LIST changes: -FENTANYL CITRATE/PF 100MCG/2 ML INJ ONE; -HYOSCYAMINE 0.125 MG TAB ONE; -MIDAZOLAM HCL 2 MG/2 ML VIAL ONE; -PANTOPRAZOLE 40 MG 10ML VIAL ONE; -PROPOFOL IV EMULSION 10 MG/ML 50 ML VIAL ONE; -SIMETHICONE 40 MG/0.6 ML BTL ONE
--- NOTE | 2019-03-14 12:55 | NUR ---
BROOKS Vanegas AT BEDSIDE EVALUATING PATIENT
--- NOTE | 2019-03-14 15:07 | Diagnostic Imaging Report ---
Exam: Pelvic ultrasound Clinical history: Left lower quadrant pain Findings: Sonographic evaluation of the pelvic region was performed. The patient is status post hysterectomy and right oophorectomy. The left ovary measures 3. By 2.9 x 3.5 cm. It contains a 3.2 x 2.3 x 3.7 cm anechoic structure with multiple thin internal septation most consistent with a ovarian cyst. Impression: 1. Status post hysterectomy and right oophorectomy. 2. Complex left ovarian cyst measuring up to 3.2 cm in diameter. Surgical evaluation is recommended. Signed by: Dr. Faisal Reeves MD on 03/14/2019 3:04 PM
[2019-03-14] MEDS ORDERED: MORPHINE SULFATE 2 MG/ML SYR 1ML IV PRN (16:00)
[2019-03-14] MEDS ORDERED: ONDANSETRON HCL INJ 2MG/ML 2ML 2 MG/ML VIAL IV PRN (16:00)
[2019-03-14] MEDS ORDERED: KETOROLAC TROMETHAMINE 30 MG/ML VIAL IV STA (16:18)
[2019-03-14 16:24] LABS: BASOPHILS % 0.1 % (0.0-1.0); EOSINOPHILS % 0.4 % (0.0-6.0); HEMATOCRIT 40.2 % (34.2-44.1); HEMOGLOBIN 13.9 g/dL (12.0-16.0); LYMPHOCYTES # (AUTO) 2.4 (1.0-3.2); LYMPHOCYTES % 34.1 % (18.0-39.1); MEAN CORPUSCULAR HEMOGLOBIN 29.6 pg (28-32); MEAN CORPUSCULAR HGB CONC 34.6 g/dL (31-35); MEAN CORPUSCULAR VOLUME 85.5 fL (81-99); MONOCYTES # (AUTO) 0.4 (0.2-0.8); MONOCYTES % 5.7 % (4.4-11.3); NEUTROPHILS # (AUTO) 4.2 (2.1-6.9); NEUTROPHILS % 59.4 % (38.7-80.0); PLATELET COUNT 244 x10e3/uL (140-360); RED CELL DISTRIBUTION WIDTH 12.7 % (11.7-14.4)
[2019-03-14 16:44] LABS: ANION GAP 12.2 mmol/L (8-16); BLOOD UREA NITROGEN 13 mg/dL (7-26); BUN/CREATININE RATIO 19 (6-25); CALCIUM 9.8 mg/dL (8.4-10.2); CARBON DIOXIDE 24 mmol/L (22-29); CHLORIDE 100 mmol/L (98-107); CREATININE, SERUM 0.68 mg/dL (0.57-1.11); EST GLOMERULAR FILTRATION RATE > 60 ML/MIN (60-); GLUCOSE 83 mg/dL (74-118); POTASSIUM 4.2 mmol/L (3.5-5.1); SODIUM 132 mmol/L (136-145)
[2019-03-14] MEDS: SODIUM CHLORIDE 0.9% 1000ML 1,000 ML IV SCH (16:45)
[2019-03-14] MEDS ORDERED: KETOROLAC TROMETHAMINE 30 MG/ML VIAL ONE (18:08)
[2019-03-14] MEDS ORDERED: ONDANSETRON HCL INJ 2MG/ML 2ML 2 MG/ML VIAL ONE (18:08)
[2019-03-14] MEDS ORDERED: PROPOFOL IV EMULSION 10 MG/ML 20 ML VIAL ONE (18:08)
[2019-03-14] MEDS ORDERED: LIDOCAINE HCL 2% LOCAL INJ 5 ML SDV VIAL INJ ONE (18:08)
[2019-03-14] MEDS ORDERED: ROCURONIUM BROMIDE 10 MG/ML 5ML VIAL ONE (18:08)
[2019-03-14] MEDS ORDERED: DEXAMETHASONE SOD PHOS INJ 4 MG/ML VIAL ONE (18:08)
[2019-03-14] MEDS ORDERED: SEVOFLURANE INHAL SOLN 250 ML PEN BTL ONE (18:08)
--- NOTE | 2019-03-14 18:55 | NUR ---
Received report from previous nurse. call light within reach. patient in bed. patient is A&Ox3. No pain or distress noted.
[2019-03-14 20:00] VITALS: BP 101/65
[2019-03-14 20:46] VITALS: BP 102/71
[2019-03-15] VITALS (8 sets, daily range): BP systolic 92–103; BP diastolic 56–68
--- NOTE | 2019-03-15 00:48 | NUR ---
Called and talked to Dr. Parsons about patient wanting to resume home medication and having Keppa tonight. Dr. Parsons approved of home medication be resumed and to give keppa now
[2019-03-15] MEDS: LEVETIRACETAM 500 MG TAB PO SCH ×3 (01:02→19:02)
[2019-03-15] MEDS: SODIUM CHLORIDE 0.9% 1000ML 1,000 ML IV SCH ×3 (02:20→18:55)
--- NOTE | 2019-03-15 07:13 | NUR ---
Gave report to oncoming nurse. call light within reach. patient in bed.
[2019-03-15] MEDS: DEPAKOTE ER 500MG TAB(ONCE DAILY) PO SCH (09:48)
[2019-03-15] MEDS ORDERED: MIDAZOLAM HCL 2 MG/2 ML VIAL ONE (13:08)
[2019-03-15] MEDS ORDERED: FENTANYL CITRATE/PF 100MCG/2 ML INJ ONE (13:08)
[2019-03-15] MEDS: KETOROLAC TROMETHAMINE 30 MG/ML VIAL IV PRN ×2 (14:58→21:27)
[2019-03-15] MEDS ORDERED: KETOROLAC TROMETHAMINE 30 MG/ML VIAL IM PRN (15:15)
--- NOTE | 2019-03-15 16:38 | History and Physical ---
HISTORY OF PRESENT ILLNESS: The patient is a 38-year-old female with past medical history positive for partial hysterectomy, seizure disorder, who came to the hospital with severe abdominal pain. She was found to have left ovarian cyst. Dr. Prieto saw her from the [employer] point of view. She is going to perform a laparoscopic oophorectomy tomorrow. REVIEW OF SYSTEMS: CARDIOVASCULAR: No chest pain. No palpitation. RESPIRATORY: No shortness of breath. No cough. GASTROINTESTINAL: No nausea or vomiting. No diarrhea. GENITOURINARY: She has left lower abdominal pain. PAST MEDICAL HISTORY: Positive for seizure disorder. PAST SURGICAL HISTORY: Partial hysterectomy. ALLERGIES: SHE IS ALLERGIC TO DARVOCET, ARTICAINE, EPINEPHRINE, TYLENOL, HYDROCODONE, AND MORPHINE. SOCIAL HISTORY: She smokes. She does not drink. PHYSICAL EXAMINATION: VITAL SIGNS: Blood pressure 98/56, temperature 97.3, heart rate 55 per minute, respiratory rate 17 per minute, oxygen saturation 99%. HEART: Showed regular rhythm. Normal S1, S2 sound. LUNGS: Clear bilaterally. ABDOMEN: Soft. LABORATORY DATA: On the BMP; it showed sodium 132, potassium 4.2, chloride 100, CO2 of 24, BUN 13, creatinine 0.68, glucose 83. On the CBC, white blood count 7.01, hemoglobin 13.9, hematocrit 40.2, platelet count 244,000. Transvaginal ultrasound was done, which shows status post hysterectomy and right oophorectomy and a complex left ovarian cyst measuring up to 3.2 cm in diameter. Surgical evaluation recommended. FINAL IMPRESSION: 1. Lower abdominal pain, most likely secondary to left ovarian cyst. 2. Seizure disorder. PLAN OF TREATMENT: Continue normal saline 150 mL an hour, Zofran 4 mg IV q.4 hours as needed, Toradol 10 mg IV q.6 hours 6 hours as needed, daily and Keppra 1500 mg twice a day. Dr. Prieto is going to perform surgery tomorrow to remove the left ovary. MD KAMALA Casiano/MODL /[id number]
[2019-03-16] VITALS: BP 104/61
[2019-03-16] MEDS: SODIUM CHLORIDE 0.9% 1000ML 1,000 ML IV SCH ×3 (03:48→12:00)
[2019-03-16 04:00] VITALS: BP 101/70
[2019-03-16] MEDS: KETOROLAC TROMETHAMINE 30 MG/ML VIAL IV PRN (04:52)
--- NOTE | 2019-03-16 07:06 | NUR ---
pt resting, pending procedure this morning
[2019-03-16 08:00] VITALS: BP 101/70
[2019-03-16] MEDS: DEPAKOTE ER 500MG TAB(ONCE DAILY) PO SCH ×2 (08:25→15:28)
[2019-03-16] MEDS: LEVETIRACETAM 500 MG TAB PO SCH ×2 (08:25→15:28)
[2019-03-16 08:30] VITALS: BP 103/58
[2019-03-16] MEDS ORDERED: BUPIVACAINE 0.5%/EPI 30 ML SDV INJ ONE (08:40)
--- NOTE | 2019-03-16 08:43 | NUR ---
pt off unit for procedure
[2019-03-16] MEDS ORDERED: BUPIVACAINE HCL 0.5% INJ 30 ML VIAL INJ ONE (08:58)
[2019-03-16] MEDS ORDERED: BUPIVACAINE LIPOSOME/PF 266 MG/20 ML IJ ONE (08:59)
[2019-03-16] MEDS ORDERED: MEPERIDINE HCL INJ 25 MG/ML VIAL ONE (10:57)
[2019-03-16] MEDS ORDERED: HYDROMORPHONE 2MG/ML 2 MG/ML ML ONE (11:37)
[2019-03-16 11:42] VITALS: BP 96/58
--- NOTE | 2019-03-16 15:31 | Consultation ---
DATE OF CONSULTATION: HISTORY OF PRESENT ILLNESS: She is a 38-year-old lady, who came into the ER status post colonoscopy and EGD the day before, but complaining of severe left lower quadrant pain. She describes the pain to be constant, 8/10, for the last 24 hours. Nausea with no vomiting. Diarrhea since November. She also complained of left lower abdominal pain since November that was getting worse for which she had a GI procedure. She denies dysuria or abnormal vaginal discharge. PAST MEDICAL HISTORY: Significant for epilepsy. She also mentioned that she is BRCA positive. PAST SURGICAL HISTORY: Significant for hysterectomy, right salpingo-oophorectomy, section, tubal ligation, appendectomy, ear surgery, cleft palate, and removal of excessive scar tissue from the abdomen on several occasions. ALLERGIES: SEPTOCAINE, MORPHINE, CODEINE, HYDROCODONE. SOCIAL HISTORY: She admits to smoking, but denies alcohol or drug abuse. REVIEW OF SYSTEMS: The patient denies any cardiovascular, respiratory, renal, dermatological, neurological, hematological, or psychiatric problem. PHYSICAL EXAMINATION: VITAL SIGNS: Stable. CHEST: Clear to auscultation. CARDIOVASCULAR: Regular rate and rhythm. ABDOMEN: Soft, slightly tender in the left lower quadrant. ASSESSMENT AND PLAN: A 38-year-old with left complex ovarian cyst, history of BRACAnalysis, positive and left lower quadrant pain. Discussed with the patient the options and offered her removal of cyst or left oophorectomy. The patient agreed on that oophorectomy. Risks and potential complication of bleeding, infection, or organ injury are explained. Lily Prieto MD DD/MARGUERITE /[id number] cc: Giovanny Woodward DO
--- NOTE | 2019-03-16 15:48 | NUR ---
pt vs stable, pain controlled. tolerated food well. ok to dc. reviewed dc instructions with pt and spouse, verbalized understanding.
[2019-03-16 16:02] VITALS: BP 92/60
--- NOTE | 2019-03-16 17:37 | Operative Report ---
DATE OF PROCEDURE: SURGEON: Lily Prieto MD PREOPERATIVE DIAGNOSIS: Left ovarian cyst. POSTOPERATIVE DIAGNOSIS: Left ovarian cyst. PROCEDURE: Left salpingo-oophorectomy using the gel point. COMPLICATIONS: None. ESTIMATED BLOOD LOSS: Minimal. DESCRIPTION OF PROCEDURE: The patient was taken to the OR, where general anesthesia was induced. She was prepped and draped in normal sterile fashion, placed in supine position with indwelling Whitten catheter was placed inside the bladder for drainage. A subumbilical midline incision of about 2 cm was made with a scalpel. Using the S-shaped retractor, the rectus fascia was reached. Two Stevo's were grasped the rectus fascia and the rectus fascia was opened with a scalpel and incision was extended vertically using curved Everett scissors. The gel point was inserted into the incision and secured. Three ports were made on the gel point and the cap was placed on the gel point and secured. The abdomen was inflated with carbon dioxide gas. The patient was placed in Trendelenburg position. Good visualization of the pelvis was noted. This was performed with the use of a grasper and the LigaSure was used to grasp the left tube and ovary and they were excised. Hemostasis was found to be adequate. The grasper was used to remove the left adnexa out of the abdomen directly. The instruments were all removed and the gel point was removed from the umbilicus. The rectus fascia approximated using Vicryl zero stitch and skin was closed with Vicryl 4-0 subcu. Exparel with Marcaine 0.25% 20 mL plus 30 mL of saline were mixed and inserted before closing the fascia with a finger underneath the rectus fascia. The gel point was inserted and felt with the finger at the peritoneal cavity and the 80 mL mixture was injected on both sides of the abdomen just above the peritoneal cavity under the rectus muscles. The patient tolerated the procedure well. The rectus fascia was closed after that with Vicryl zero. Skin was closed with Vicryl 4-0 subcu. The patient tolerated the procedure well. Lap, sponge, needle counts correct x2 at the end of procedure. Lily Prieto MD DD/MODL /[id number]
== END 2019-03-16 15:46 | disposition home or self-care (01) ==
LOC: ER 12:19 → OBSVTOIN 16:10 → ERHOLD 16:10 → INTOOBSV 16:10 → IMCU 18:05
PROVIDERS: ADMIT Internal Medicine; ATTEND Internal Medicine
DX: N83.292 Other ovarian cyst, left side (principal); Z88.8 Allergy status to other drugs, medicaments and biological substances; F17.210 Nicotine dependence, cigarettes, uncomplicated; Z83.3 Family history of diabetes mellitus; Z82.49 Family history of ischemic heart disease and other diseases of the circulatory system; K27.9 Peptic ulcer, site unspecified, unspecified as acute or chronic, without hemorrhage or perforation; G40.909 Epilepsy, unspecified, not intractable, without status epilepticus
CPT/HCPCS: 36415; 58661; 76830; 76856; 80048; 85025; 88305; 93976; 99284; C9290; G0378 ×3; J1170; J1885 ×3; J2175; J2250; J3010; J7030 ×3; J1100; J2001; J2405

== ENCOUNTER 2023-08-29 15:54 | Emergency (ER) | payer MEDICARE, OTHER ==
[~2023-08-29] VITALS: Ht 162.6 cm; Wt 87.2 kg
[2023-08-29] MEDS ORDERED: ONDANSETRON HCL INJ 2MG/ML 2ML 2 MG/ML VIAL ONE (16:38)
[2023-08-29] MEDS ORDERED: KETOROLAC TROMETHAMINE 30 MG/ML VIAL ONE (16:39)
[2023-08-29] MEDS ORDERED: LACTATED RINGER'S 1,000 ML ONE (16:39)
[2023-08-29] MEDS: LACTATED RINGER'S 1,000 ML INJ ONE (16:42)
[2023-08-29] MEDS: SODIUM CHLORIDE 0.9% 1000ML 1,000 ML IV STA (16:42)
[2023-08-29] MEDS: KETOROLAC TROMETHAMINE 30 MG/ML VIAL IV STA (16:43)
[2023-08-29] MEDS: ONDANSETRON HCL INJ 2MG/ML 2ML 2 MG/ML VIAL IV ONE (16:43)
[2023-08-29] MEDS ORDERED: KETOROLAC TROME10 MG PO (17:34)
[2023-08-29] MEDS ORDERED: ONDANSETRON ODT4 MG PO (17:34)
[2023-08-29 17:45] VITALS: O2SAT 99
== END 2023-08-29 17:45 | disposition home or self-care (01) ==
LOC: FSED 15:56
DX: R06.02 Shortness of breath (principal); R07.89 Other chest pain; K85.90 Acute pancreatitis without necrosis or infection, unspecified; R10.13 Epigastric pain; G40.909 Epilepsy, unspecified, not intractable, without status epilepticus; Z85.3 Personal history of malignant neoplasm of breast; Z85.43 Personal history of malignant neoplasm of ovary
CPT/HCPCS: 36415; 71046; 80048; 80076; 81003; 82553; 83690; 84484; 85025; 96374; 96375; 99284; J1885; J2405; J7121; 93005

== ENCOUNTER 2023-08-30 09:07 | Emergency (ER) | payer OTHER ==
[~2023-08-30] VITALS: Ht 162.6 cm; Wt 86.6 kg
[~2023-08-30 09:07] MED LIST changes: +KETOROLAC TROME10 MG PO; +ONDANSETRON ODT4 MG PO
[2023-08-30] MEDS ORDERED: KETOROLAC TROMETHAMINE 30 MG/ML VIAL ONE (10:45)
[2023-08-30] MEDS ORDERED: ONDANSETRON HCL INJ 2MG/ML 2ML 2 MG/ML VIAL ONE (10:45)
[2023-08-30] MEDS ORDERED: SODIUM CHLORIDE 0.9% 1000ML 1,000 ML ONE (10:45)
[2023-08-30] MEDS ORDERED: FAMOTIDINE 20 MG/2 ML VIAL IV ONE (10:46)
[2023-08-30] MEDS ORDERED: IOPAMIDOL 370 MG/ML 100 ML INFUS..BTL INJ ONE (10:52)
[2023-08-30] MEDS: FAMOTIDINE 20 MG/2 ML VIAL IV STA (11:03)
[2023-08-30] MEDS: KETOROLAC TROMETHAMINE 30 MG/ML VIAL IV STA (11:04)
[2023-08-30] MEDS: ONDANSETRON HCL INJ 2MG/ML 2ML 2 MG/ML VIAL IV STA (11:04)
[2023-08-30] MEDS: SODIUM CHLORIDE 0.9% 1000ML 1,000 ML IV ONE (11:04)
[2023-08-30 13:24] VITALS: O2SAT 100
[2023-08-30 13:47] VITALS: BP 117/71; PULSE 68; RESP 17
== END 2023-08-30 13:49 | disposition home or self-care (01) ==
LOC: FSED 09:14
DX: R10.11 Right upper quadrant pain (principal); M54.9 Dorsalgia, unspecified; K21.9 Gastro-esophageal reflux disease without esophagitis; G40.909 Epilepsy, unspecified, not intractable, without status epilepticus
CPT/HCPCS: 74177; 80048; 80053; 81003; 82553; 84484; 85025; 96374; 96376; 99284; J1885; J2405; J7030; Q9967